=== PATIENT | male | born 1945 | race Caucasian/White ===

== ENCOUNTER 2018-01-25 13:07 | Inpatient (IN) ==
[2018-01-25] MEDS ORDERED: Furosemide 40 MG/4 ML VIAL IVP ONE ×2 (13:57→16:18)
[2018-01-25 14:12] LABS: Hematocrit 39.3 % (37.5-50.1); Mean Corpuscular HGB Conc 33.1 g/dL (31.6-35.5); Mean Corpuscular Hemoglobin 29.3 pg (28.0-33.3); Mean Corpuscular Volume 88.5 fL (83.0-100.0); Mean Platelet Volume 9.9 fL (9.4-12.4); Platelet Count 274 K/mcL (140-400); Red Blood Count 4.44 M/mcL (4.19-5.50); Red Cell Distribution Width 17.3 % (11.5-14.5)
[2018-01-25 14:24] LABS: INR 2.9; Prothrombin Time 32.8 Seconds (9.4-12.1)
--- NOTE | 2018-01-25 14:31 | Emergency Department Note ---
Disposition Clinical Impression: Congestive heart failure, Shortness of breath, Trigeminy, Atrial fibrillation Disposition: Admitted As Inpatient Referrals: Murray Sarah DO [Primary Care Provider] - Forms: ED Satisfaction Letter General Adult HPI - General Chief complaint: ED Shortness of Breath/Dyspnea Stated complaint: "SOB x 1 week" Time Seen by Provider: 01/25/18 13:27 - History of Present Illness Pain Scale: 0 - Related Data Previous Rx's Medication Instructions Recorded OxyCODONE/APAP 5/325 [Percocet 1 each PO Q8HR PRN 2 Days #5 tablet 10/01/17 5/325 MG] Allergies Allergy/AdvReac Type Severity Reaction Status Date / Time No Known Allergies Allergy Verified 10/01/17 08:46 Past Medical History - Past Medical History Medical history: Reports: arthritis, atrial fibrillation, cancer, coronary artery disease, CVA, diabetes, glaucoma, hyperlipidemia, hypertension, TIA Psychiatric history: Reports: no psych history - Social History Smoking Status: Current every day smoker Smokeless Tobacco Status: No Alcohol use: Reports: none Drug use: Reports: none Course Vital Signs Temperature 97.7 F 01/25/18 13:12 Pulse Rate 86 01/25/18 13:12 Respiratory Rate 14 01/25/18 13:12 Blood Pressure 148/102 01/25/18 13:12 O2 Sat by Pulse Oximetry 94 01/25/18 13:12 Temperature 97.7 F 01/25/18 13:41 Pulse Rate 86 01/25/18 13:41 Respiratory Rate 14 01/25/18 13:41 Blood Pressure 148/102 01/25/18 13:41 O2 Sat by Pulse Oximetry 94 01/25/18 13:41 Oxygen Delivery Oxygen Delivery Room Air Medical Decision Making - Lab Data Result diagrams: 01/25/18 13:52 Lab Results 01/25/18 01/25/18 Range/Units 13:52 14:07 WBC 9.3 (4.3-11.1) K/mcL RBC 4.44 (4.19-5.50) M/mcL Hgb 13.0 (12.9-16.9) g/dL Hct 39.3 (37.5-50.1) % MCV 88.5 (83.0-100.0) fL MCH 29.3 (28.0-33.3) pg MCHC 33.1 (31.6-35.5) g/dL RDW 17.3 H (11.5-14.5) % Plt Count 274 (140-400) K/mcL MPV 9.9 (9.4-12.4) fL PT 32.8 H (9.4-12.1) Seconds INR 2.9 Critical Care Time Critical Care Time: No Attestation Statement - Attestation Attestation: I examined this patient and my medical decision-making was reviewed with the Resident Physician. I agree with the documented findings, disposition and treatment plan as described except to the extent set forth below. 72-year-old male since emergency room for shortness of breath, weight gain, leg swelling. Patient has no history of congestive heart failure. Chest x-ray shows CHF. We will place him on IV Lasix of 40 mg. Patient will need to be admitted for further workup of CHF. He denies any history of congestive heart failure. Also do a right lower extremity Doppler is his right lower extremity was more swollen than the left. I anticipate this to be normal. His EKG showed some trigeminy at times. He does have underlying history of A. fib. He has A. fib date did back in September 2017. He is currently on Coumadin. Patient does have a history of seeing cardiology in the past. No critical care time.
[2018-01-25 14:37] LABS: Troponin I < 0.03 ng/mL (< 0.04)
--- NOTE | 2018-01-25 14:41 | Emergency Department Note ---
Disposition Clinical Impression: Shortness of breath, Trigeminy Congestive heart failure Qualifiers: Heart failure type: unspecified Heart failure chronicity: acute on chronic Qualified Code(s): I50.9 - Heart failure, unspecified Atrial fibrillation Qualifiers: Atrial fibrillation type: chronic Qualified Code(s): I48.2 - Chronic atrial fibrillation Disposition: Admitted As Inpatient Condition: Good Referrals: Murray Sarah DO [Primary Care Provider] - Forms: ED Satisfaction Letter Time of Disposition: 16:23 General Adult HPI - General Chief complaint: ED Shortness of Breath/Dyspnea Stated complaint: "SOB x 1 week" Time Seen by Provider: 01/25/18 13:27 Nursing Notes Reviewed: Yes Vital Signs Reviewed: Yes - History of Present Illness HPI Narrative: Patient presenting to emergency department complaining of shortness of breath for 1 week as well as increasing shortness of breath. Does have a history of congestive heart failure as well as open heart surgery in May. Reports that he has been placed on Lasix within the past month however this was just a short worse. This did make a shortness of breath go away at that time. Patient is mildly diaphoretic at this time. Has some shallow breathing. Lung sounds are diminished however clear. Patient states that he has been on BiPAP before and requests to not go on this unless it absolutely necessary. We did get a basic lab workup on patient and provided him with 40 units of Lasix. He was found to be in congestive heart failure by chest x-ray. He had increased pulmonary edema. He does have bilateral lower extremity pitting. Is worse on the right than the left. A Doppler was done on the right lower extremity which was negative. We will admit patient to the hospitalist for a CHF exacerbation at this time. He is agreeable with this. I did go reassess the patient at time of admission and he states that he was feeling a little better. Pain Scale: 0 - Related Data Home Medications Medication Instructions Recorded Confirmed Aspirin Enteric Coated [Aspirin EC] 81 mg PO DAILY 01/25/18 01/25/18 Cetirizine HCl [Zyrtec] 10 mg PO DAILY 01/25/18 01/25/18 Donepezil [Aricept] 10 mg PO HS 01/25/18 01/25/18 Fenofibrate 200 mg PO DAILY 01/25/18 01/25/18 Insulin DETEMIR [Levemir] 20 unit SQ BID 01/25/18 01/25/18 Levothyroxine Sodium 25 mcg PO DAILY 01/25/18 01/25/18 [Levothyroxine Sodium] Metformin HCl [Glucophage] 1,000 mg PO QAM 01/25/18 01/25/18 Metoprolol Tartrate 100 mg PO DAILY 01/25/18 01/25/18 Multivitamin [One Daily Essential] 1 tab PO DAILY 01/25/18 01/25/18 Simvastatin [Zocor] 40 mg PO HS 01/25/18 01/25/18 Travoprost [Travatan Z] 1 drop BOTH EYES DAILY 01/25/18 01/25/18 Warfarin [Coumadin] 2.5 mg PO TUTHSA 01/25/18 01/25/18 Warfarin [Coumadin] 4 mg PO SUMOWEFR 01/25/18 01/25/18 metFORMIN [Glucophage] 500 mg PO QPM 01/25/18 01/25/18 Allergies Allergy/AdvReac Type Severity Reaction Status Date / Time No Known Allergies Allergy Verified 10/01/17 08:46 All systems ED: reviewed and negative except as stated. Review of Systems: As Per HPI Constitutional: Denies: fever, chills ENT ED: Reports: congestion (clear rhinorhea) Cardiovascular: Denies: chest pain, syncope Respiratory: Reports: dyspnea. Denies: cough, sputum production Gastrointestinal: Denies: abdominal pain, nausea, vomiting, diarrhea, hematemesis, melena, hematochezia Musculoskeletal: Reports: other (Swelling to lower cavities. Noted a right lower extremity swelling that is increased from the left side.). Denies: back pain, neck pain Integumentary: Denies: rash Neurological: Reports: weakness (Getting worse over the past week) Past Medical History - Past Medical History Attestation: Yes The following information was validated with the patient. Source: patient Medical history: Reports: arthritis, atrial fibrillation, cancer, coronary artery disease, CVA, diabetes, glaucoma, hyperlipidemia, hypertension, TIA Psychiatric history: Reports: no psych history - Social History Smoking Status: Current every day smoker Smokeless Tobacco Status: No Alcohol use: Reports: none Drug use: Reports: none Physical Exam - General Limitations: no limitations General appearance: alert, in no apparent distress - Head Head exam: atraumatic, normocephalic, normal inspection - Eye Eye exam: Present: normal appearance, PERRL, EOMI - ENT ENT exam: normal exam, normal oropharynx, mucous membranes moist - Neck Neck exam: Present: normal inspection, full ROM, trachea midline - Chest Chest inspection: Present: normal inspection, symmetric chest wall rise - Respiratory Respiratory exam: Present: respiratory distress (Mildly tachypneic.), other ( Decreased lung sounds throughout.). Absent: accessory muscle use - Cardiovascular Cardiovascular exam: Present: regular rate, normal rhythm, normal heart sounds - Abdominal Exam Abdominal exam: Present: soft, Non-Tender. Absent: tenderness, distention, guarding, rebound, rigidity, organomegaly - Extremities Exam Extremities exam: Present: normal capillary refill, pedal edema, other (Lower extremity swelling. Right worse than left.). Absent: calf tenderness - Back Exam Back exam: Present: normal inspection, full ROM. Absent: tenderness - Neurological Exam Neurological exam: Present: alert, oriented X3 - Psychiatric Psychiatric exam: Present: normal affect, normal mood - Skin Skin exam: Present: warm, dry, intact, normal color, diaphoresis (Mildly diaphoretic). Absent: rash, cyanosis Course Course Narrative: Patient is mildly dyspneic on initial exam. He is tachypneic with short shallow breathing. He states that he does have a history of CHF. Was on Lasix previously however does not take this all the time. Is not currently on it. Does report an increased weight gain recently. Does have a history of aortic valve replacement as well. He is in a atrial fibrillation on EKG with trigeminy. He was previously had several PVCs on his old EKG. We will admit patient to the hospital at this time for CHF exacerbation. Vital Signs Temperature 97.7 F 01/25/18 13:12 Pulse Rate 86 01/25/18 13:12 Respiratory Rate 14 01/25/18 13:12 Blood Pressure 148/102 01/25/18 13:12 O2 Sat by Pulse Oximetry 94 01/25/18 13:12 Temperature 97.7 F 01/25/18 13:41 Pulse Rate 85 01/25/18 15:32 Respiratory Rate 30 01/25/18 15:32 Blood Pressure 133/116 01/25/18 15:32 O2 Sat by Pulse Oximetry 96 01/25/18 15:32 Oxygen Delivery Oxygen Delivery Nasal Cannula Medical Decision Making - Medical Records Medical records reviewed: Yes I reviewed the patient's medical records. - Lab Data Lab results reviewed: Yes I reviewed the patient's lab results. Result diagrams: 01/25/18 13:52 01/25/18 13:52 Lab Results 01/25/18 01/25/18 01/25/18 Range/Units 13:52 13:52 14:05 WBC 9.3 (4.3-11.1) K/mcL RBC 4.44 (4.19-5.50) M/mcL Hgb 13.0 (12.9-16.9) g/dL Hct 39.3 (37.5-50.1) % MCV 88.5 (83.0-100.0) fL MCH 29.3 (28.0-33.3) pg MCHC 33.1 (31.6-35.5) g/dL RDW 17.3 H (11.5-14.5) % Plt Count 274 (140-400) K/mcL MPV 9.9 (9.4-12.4) fL PT (9.4-12.1) Seconds INR Sodium 137 (136-145) mEq/L Potassium 4.0 (3.5-5.1) mEq/L Chloride 108 H (98-107) mEq/L Carbon Dioxide 20 L (23-29) mEq/L BUN 14 (8-23) mg/dL Creatinine 1.01 (0.70-1.30) mg/dL Est GFR ( Amer) > 60 (> 60) Est GFR (Non-Af Amer) > 60 (> 60) BUN/Creatinine Ratio 14 (6-26) Glucose 195 H (70-105) mg/dL Calculated Osmolality 290 (280-300) Lactic Acid 1.5 (0.5-2.2) mmol/L Calcium 9.3 (8.6-10.3) mg/dL Troponin I < 0.03 (< 0.04) ng/mL B-Natriuretic Peptide (Less than 100) pg/mL 01/25/18 01/25/18 Range/Units 14:05 14:07 WBC (4.3-11.1) K/mcL RBC (4.19-5.50) M/mcL Hgb (12.9-16.9) g/dL Hct (37.5-50.1) % MCV (83.0-100.0) fL MCH (28.0-33.3) pg MCHC (31.6-35.5) g/dL RDW (11.5-14.5) % Plt Count (140-400) K/mcL MPV (9.4-12.4) fL PT 32.8 H (9.4-12.1) Seconds INR 2.9 Sodium (136-145) mEq/L Potassium (3.5-5.1) mEq/L Chloride (98-107) mEq/L Carbon Dioxide (23-29) mEq/L BUN (8-23) mg/dL Creatinine (0.70-1.30) mg/dL Est GFR ( Amer) (> 60) Est GFR (Non-Af Amer) (> 60) BUN/Creatinine Ratio (6-26) Glucose (70-105) mg/dL Calculated Osmolality (280-300) Lactic Acid (0.5-2.2) mmol/L Calcium (8.6-10.3) mg/dL Troponin I (< 0.04) ng/mL B-Natriuretic Peptide 345 H (Less than 100) pg/mL - Radiology Data Radiology results reviewed: Yes I reviewed the patient's radiology results. Chest X-Ray 01/25/18 13:15 IMPRESSION: Mild CHF. D/ / Maurizio Crowell MD / Maurizio Crowell MD Interpreting Provider: Maurizio Crowell MD - EKG Data EKG #1 EKG attestation: Yes I reviewed and interpreted this EKG. EKG results narrative: Atrial fibrillation with trigeminy at this time. Was in this previously on old EKG in September. No Signs of acute ischemia.
[2018-01-25 14:44] LABS: BUN/Creatinine Ratio 14 (6-26); Blood Urea Nitrogen 14 mg/dL (8-23); Calcium 9.3 mg/dL (8.6-10.3); Carbon Dioxide 20 mEq/L (23-29); Chloride 108 mEq/L (98-107); Glucose 195 mg/dL (70-105); Osmolality,Calculated 290 (280-300); Sodium 137 mEq/L (136-145); eGFR For Non-African Americans > 60 (> 60)
[2018-01-25] MEDS ORDERED: *HR* Morphine 2 MG/ML SYRINGE IVP ONE (16:18)
[2018-01-25] MEDS ORDERED: Naloxone 0.4 MG/ML INJ IVP PRN (16:19)
--- NOTE | 2018-01-25 16:34 | Internal Med History&Physical ---
Date of Encounter: 01/25/18 Time of Encounter: 16:31 Internal Medicine - H&P: HPI Chief complaint: Shortness of breath and neck swelling. Admitted From: Home Plans for Post Hospital Care: Home History of present illness: Mr. Davis is a 72 year old male , seen in company of his son He has a PMH of CAD, s/p aortic valve replacement 05/2017 in [place], hx of bladder stimulation placement due to prostatic CA, Afib on warfarin, HTN, Tobacco abuse, history of glaucoma and cataract s/p eye surgery 01/24/18 He presented to the ER with complains of progressive worsening shortness of breath for the past one week. According to the patient and his family member on the bedside, he was able to climb a flight of stairs and basically independent at home. however, for the past one week, he has been having worsening leg edema, weight gain and progressive shortness of breath, initially on exertion, now at rest. He was in resp distress this a.m, prompting them to call EMS. He denies cough, fever or chills. 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 He denies calf tenderness and there is no history of trauma. He denies chest pain, nausea, vomiting, dizziness or diaphoresis. He denies abdominal pain or discomfort, no change in urinary or bowel habits. He denies confusion or headaches He denies illicit drug use and smokes tobacco He has no known medication allergies On evaluation in the ER, he was in significant resp distress and hypoxic but responded promptly to O2 supplementation, work up revealed pulm vascular congestion, BNP 354, Initial trops negative, EKG with Afib with trigeminy, CBC is WNL and Chem is WNL. INR is therapeutic During my evaluation, patient is in moderate resp distress, unable to complete his sentences and tachtpneic to 30s. He was offered BiPAP by ER team but had declined, he also received lasix from the ER He will be admitted for acute CHFE with resp distress requiring non-invasive mechanical ventilation. He is full code Past Med Surg Social Fam HX - Past Medical History Medical history: arthritis, atrial fibrillation, cancer, coronary artery disease , CVA, diabetes, glaucoma, hyperlipidemia, hypertension, TIA Additional medical history: prostrate, dec fall possible stroke Psychiatric history: no psych history - Past Surgical History Additional surgical history: prostrate, finger, cabg - Social History Smoking Status: Current every day smoker Smokeless Tobacco Status: No Alcohol use: none Drug use: none Internal Medicine - H&P: Meds Aspirin Enteric Coated [Aspirin EC] 81 mg PO DAILY 01/25/18 [History] Cetirizine HCl [Zyrtec] 10 mg PO DAILY 01/25/18 [History] Donepezil [Aricept] 10 mg PO HS 01/25/18 [History] Fenofibrate 200 mg PO DAILY 01/25/18 [History] Insulin DETEMIR [Levemir] 20 unit SQ BID 01/25/18 [History] Levothyroxine Sodium [Levothyroxine Sodium] 25 mcg PO DAILY 01/25/18 [History] Metformin HCl [Glucophage] 1,000 mg PO QAM 01/25/18 [History] Metoprolol Tartrate 100 mg PO DAILY 01/25/18 [History] Multivitamin [One Daily Essential] 1 tab PO DAILY 01/25/18 [History] Simvastatin [Zocor] 40 mg PO HS 01/25/18 [History] Travoprost [Travatan Z] 1 drop BOTH EYES DAILY 01/25/18 [History] Warfarin [Coumadin] 2.5 mg PO TUTHSA 01/25/18 [History] Warfarin [Coumadin] 4 mg PO SUMOWEFR 01/25/18 [History] metFORMIN [Glucophage] 500 mg PO QPM 01/25/18 [History] 3 Allergy/AdvReac Type Severity Reaction Status Date / Time No Known Allergies Allergy Verified 10/01/17 08:46 All Systems PM: A 10-system review of systems was performed and is negative for pertinent findings except as documented above in the HPI. - Constitutional Constitutional: as per HPI - EENT Eyes: as per HPI Ears: as per HPI Nose, mouth and throat: as per HPI - Cardiovascular Cardiovascular ROS IM: as per HPI - Respiratory Respiratory: as per HPI - Gastrointestinal Gastrointestinal: as per HPI - Musculoskeletal Musculoskeletal ROS IM: as per HPI - Integumentary Integumentary IM: as per HPI - Neurological Neurological ROS: as per HPI - Hematologic/Lymphatic Hematologic/Lymphatic: as per HPI - Constitutional Vitals: Temp Pulse Resp BP Pulse Ox 97.7 F 85 30 133/116 96 01/25/18 13:41 01/25/18 15:32 01/25/18 15:32 01/25/18 15:32 01/25/18 15:32 General appearance: Present: cooperative, A&O X 3, pleasant, severe distress ( severe resp distress, tachypneic) Exam: see detailed exam per system - Head Head exam: Present: atraumatic, normocephalic - Eye Eye exam: Present: PERRL, conjuntiva pink, sclera anicteric Pupils: Present: PERRL Additional comments: R rina-orbital ecchymoses, patient had cataract surgery 01/24/18 - ENT ENT exam: Present: mucous membranes moist - Neck Neck exam general surgery: Present: normal inspection - Respiratory Additional comments: bilateral diminished air entry RLL and LLL crackles No wheezing - Cardiovascular Cardiovascular exam: Present: irregular rhythm, +S1, +S2, systolic murmur - GI/Abdominal GI/Abdominal exam: Present: normal bowel sounds, soft, no peritoneal signs. Absent: guarding, tenderness - Extremities Exam Extremities exam: Present: pedal edema (bilateral pitting pedal edema, L>R) - Neurological Exam Neurological exam: Present: alert, CN II-XII intact, oriented X3, no focal deficits. Absent: pronater drift, facial droop, speech deficit - Skin Skin exam: Present: dry, intact Internal Med - H&P Results - Labs CBC & Chem 7: 01/25/18 13:52 01/25/18 13:52 Labs: Short CBC 01/25/18 Range/Units 13:52 WBC 9.3 (4.3-11.1) K/mcL Hgb 13.0 (12.9-16.9) g/dL Hct 39.3 (37.5-50.1) % Plt Count 274 (140-400) K/mcL BMP 01/25/18 13:52 Sodium 137 Potassium 4.0 Chloride 108 H Carbon Dioxide 20 L BUN 14 Creatinine 1.01 Glucose 195 H Calcium 9.3 Cardiac Enzymes 01/25/18 Range/Units 13:52 Troponin I < 0.03 (< 0.04) ng/mL - Impressions ITS Impressions Chest X-Ray 01/25/18 13:15 IMPRESSION: Mild CHF. D/ / Maurizio Crowell MD / Maurizio Crowell MD Interpreting Provider: Maurizio Crowell MD - Assessment and plan (1) Congestive heart failure Current Visit: Yes Status: Acute Assessment and plan: Patient presented with shortness of breath on exertion, leg edema in the setting of Afib , recent aortic valve replacement BNP on admission 354 CXR with mild pulm edema Patient in resp distress on evaluation Received 40mg lasix in ER Will give an additional 40mg IV STAT Morphine 2mg IV Place on BIPAP tp decrease work of breathing Initial EKG with Afib with trigeminy Initial troponin negative-will trend Strict I/os Daily weight Fluid restriction diet 1500cc dialy ECHO from 08/2017 with preserved EF and well placed bioprosthetic aortic valve, diastolic function was indeterminate. Will repeat limited ECHO to assess EF, aortic valve and wall motion Consider cardiology eval if patient is not improving Patient is high risk due to diagnosis, significant resp distress and risk for mechanical intubation Qualifiers: Heart failure type: unspecified Heart failure chronicity: acute on chronic Qualified Code(s): I50.9 - Heart failure, unspecified (2) Coronary artery disease Current Visit: Yes Status: Chronic Assessment and plan: Continue home meds Qualifiers: Coronary Disease-Associated Artery/Lesion type: [place] artery [place] vs. transplanted heart: [place] heart Associated angina: without angina Qualified Code(s): I25.10 - Atherosclerotic heart disease of [place] coronary artery without angina pectoris (3) S/P aortic valve replacement Current Visit: Yes Status: Chronic Assessment and plan: Follow ECHO report (4) HTN (hypertension) Current Visit: Yes Status: Chronic Assessment and plan: Blood pressure uncontrolled at time of presentation Resume home meds and titrate prn Qualifiers: Hypertension type: essential hypertension Qualified Code(s): I10 - Essential (primary) hypertension (5) Tobacco abuse Current Visit: Yes Status: Chronic Assessment and plan: Encouraged cessation (6) Atrial fibrillation Current Visit: Yes Status: Chronic Assessment and plan: HR mostly controlled Patient stated he took his medications this mrn INR is therapeutic Continue BB and Warfarin-pharmacy to dose Qualifiers: Atrial fibrillation type: chronic Qualified Code(s): I48.2 - Chronic atrial fibrillation (7) Hypothyroidism Current Visit: Yes Status: Chronic Assessment and plan: Check TSH with a.m labs Continue home dose of synthroid Qualifiers: Hypothyroidism type: unspecified Qualified Code(s): E03.9 - Hypothyroidism , unspecified - Time Spent With Patient Total time spent is greater than 50% in coordination of care (as documented) at patient's floor/unit and/or counseling patient:
[2018-01-25] MEDS ORDERED: D5% in Water 1,000 ML IVC PRN (16:58)
[2018-01-25] MEDS ORDERED: Dextrose Gel 15 GM/37.5 ML TUBE PO PRN ×2 (16:58)
[2018-01-25] MEDS ORDERED: *HR* Dextrose 50 % in Water (Syg) 50 ML SYRINGE IVP PRN (16:58)
[2018-01-25] MEDS ORDERED: Warfarin perPT PO PRN (18:00)
[2018-01-25] MEDS: Insulin LISPRO 300 UNITS/3 ML VIAL SQ SCH (21:14)
[2018-01-25] MEDS: Insulin DETEMIR 100 UNIT/ML X5UNITS SQ SCH (21:14)
[2018-01-26] MEDS: Levothyroxine 25 MCG TABLET PO SCH (05:33)
[2018-01-26 05:53] LABS: Hematocrit 38.7 % (37.5-50.1); Hemoglobin 12.5 g/dL (12.9-16.9); Mean Corpuscular HGB Conc 32.3 g/dL (31.6-35.5); Mean Corpuscular Hemoglobin 28.5 pg (28.0-33.3); Mean Corpuscular Volume 88.4 fL (83.0-100.0); Platelet Count 287 K/mcL (140-400); Red Blood Count 4.38 M/mcL (4.19-5.50); Red Cell Distribution Width 17.2 % (11.5-14.5)
[2018-01-26 05:56] LABS: INR 2.9; Prothrombin Time 32.4 Seconds (9.4-12.1)
[2018-01-26 05:59] LABS: Activated Partial Thrombo Time 35.3 Seconds (26.0-36.0)
[2018-01-26 06:12] LABS: BUN/Creatinine Ratio 11 (6-26); Blood Urea Nitrogen 13 mg/dL (8-23); Calcium 9.2 mg/dL (8.6-10.3); Carbon Dioxide 25 mEq/L (23-29); Chloride 105 mEq/L (98-107); Glucose 104 mg/dL (70-105); Osmolality,Calculated 288 (280-300); Potassium 3.4 mEq/L (3.5-5.1); Sodium 139 mEq/L (136-145); eGFR For Non-African Americans 58 (> 60)
[2018-01-26] MEDS: Insulin LISPRO 300 UNITS/3 ML VIAL SQ SCH ×4 (07:40→20:20)
[2018-01-26] MEDS: Loratadine 10 MG TABLET PO SCH (08:04)
[2018-01-26] MEDS: Fenofibrate 54 MG TABLET PO SCH (08:04)
[2018-01-26] MEDS: Multivit/Ca/Min/Fe/FA 1 TAB TABLET PO SCH (08:04)
[2018-01-26] MEDS: Aspirin Enteric Coated 81 MG Tablet PO SCH (08:04)
[2018-01-26] MEDS: Insulin DETEMIR 100 UNIT/ML X5UNITS SQ SCH ×2 (08:12→20:21)
[2018-01-26] MEDS ORDERED: Metoprolol 100 MG TABLET PO SCH (09:00)
[2018-01-26 09:06] LABS: Estimated Average Glucose 197 mg/dl; Hemoglobin A1C 8.5 %
--- NOTE | 2018-01-26 15:10 | Internal Med Progress Note ---
Hospitalist Progress Note - Encounter Date of Encounter: 01/26/18 Time of Encounter: 15:07 - Subjective Interval History: Presented with complaints of progressive worsening dyspnea 1 week. In the ED found to have congestive heart failure. Imaging revealed mild CHF, patient given lysis and restrictive status improved. Continues have some shortness of breath at rest, worse with activity. Continues to have 1+ pitting bilateral lower extremity edema. - Exam Vitals: Temp Pulse Resp BP Pulse Ox 97.6 F 86 16 131/86 94 01/26/18 11:03 01/26/18 11:03 01/26/18 11:03 01/26/18 11:03 01/26/18 11:03 Exam: PHYSICAL EXAMINATION: GENERAL: The patient is an ill-appearing elderly male in mild distress distress , he is alert and oriented 3 HEENT: Head is normocephalic and atraumatic. Extraocular muscles are intact. Pupils are equal, round, and reactive to light and accommodation. Nares appeared normal. Mouth is well hydrated and without lesions. Mucous membranes are moist. Posterior pharynx clear of any exudate or lesions. NECK: Supple. No carotid bruits. No lymphadenopathy or thyromegaly. LUNGS: BL L Rales, diminished with limitations in her movement per auscultation HEART: Irregular rhythm, S1, S2 ABDOMEN: Soft, nontender, and nondistended. Positive bowel sounds. No hepatosplenomegaly was noted. EXTREMITIES: Without any cyanosis, clubbing, rash, lesions or edema. NEUROLOGIC: Cranial nerves II through XII are grossly intact. SKIN: No ulceration or induration present. - Assessment and Plan (1) Congestive heart failure Current Visit: Yes Status: Acute Assessment and Plan: Patient presented with shortness of breath on exertion, leg edema in the setting of Afib , recent aortic valve replacement BNP on admission 354 CXR with mild pulm edema Presenting rest or distress, continues have mild shortness of breath while laying in bed on 2 L nasal cannula, worse with activity. Received 40mg lasix in the ED and on arrival to the floor total fluid status not negative -940 Morphine 2mg IV Initial EKG with Afib with trigeminy Serial troponins negative 2 less than 0.03 Strict I/os Daily weight Fluid restriction diet 1500cc dialy ECHO from 08/2017 with preserved EF and well placed bioprosthetic aortic valve, diastolic function was indeterminate. Will repeat limited ECHO to assess EF, aortic valve and wall motion-pending Consider cardiology eval if patient is not improving Patient is high risk due to diagnosis, significant resp distress and risk for mechanical intubation (2) Atrial fibrillation Current Visit: Yes Status: Chronic Assessment and Plan: HR mostly controlled--12 hour review avg hr in the 80s hemodynamically stable INR is therapeutic Continue BB and Warfarin-pharmacy to dose (3) Coronary artery disease Current Visit: Yes Status: Chronic Assessment and Plan: per hx chest pain free continue tele Continue home meds (4) S/P aortic valve replacement Current Visit: Yes Status: Chronic Assessment and Plan: tte pending (5) HTN (hypertension) Current Visit: Yes Status: Chronic Assessment and Plan: per hx remains hemodynamically stable continue anti-htn meds (6) Tobacco abuse Current Visit: Yes Status: Chronic Assessment and Plan: discuss cessation (7) Hypothyroidism Current Visit: Yes Status: Chronic Assessment and Plan: continue synthroid DVT Prophylaxis: warfarin, PT dosing, therapeutic - Time Spent with Patient Total time spent is greater than 50% in coordination of care (as documented) at patient's floor/unit and/or counseling patient: less than 15 minutes Plan of Care Discussed with: patient Internal Medicine: Result - Labs CBC & Chem 7: 01/26/18 04:54 01/26/18 04:54 Labs: Short CBC 01/26/18 Range/Units 04:54 WBC 8.3 (4.3-11.1) K/mcL Hgb 12.5 L (12.9-16.9) g/dL Hct 38.7 (37.5-50.1) % Plt Count 287 (140-400) K/mcL BMP 01/26/18 04:54 Sodium 139 Potassium 3.4 L Chloride 105 Carbon Dioxide 25 BUN 13 Creatinine 1.22 Glucose 104 Calcium 9.2 Cardiac Enzymes 01/25/18 Range/Units 20:51 Troponin I < 0.03 (< 0.04) ng/mL - ABG Interpretation ABG results: PT/INR, D-dimer PT 32.4 Seconds (9.4-12.1) H 01/26/18 04:54 Consult Discharge Plan - Plan Referrals: Murray Sarah DO [Primary Care Provider] - 02/06/18 10:10 am (1) Congestive heart failure Qualifiers: Heart failure type: unspecified Heart failure chronicity: acute on chronic Qualified Code(s): I50.9 - Heart failure, unspecified (2) Atrial fibrillation Qualifiers: Atrial fibrillation type: chronic Qualified Code(s): I48.2 - Chronic atrial fibrillation (3) Coronary artery disease Qualifiers: Coronary Disease-Associated Artery/Lesion type: [place] artery [place] vs. transplanted heart: [place] heart Associated angina: without angina Qualified Code(s): I25.10 - Atherosclerotic heart disease of [place] coronary artery without angina pectoris (5) HTN (hypertension) Qualifiers: Hypertension type: essential hypertension Qualified Code(s): I10 - Essential (primary) hypertension (7) Hypothyroidism Qualifiers: Hypothyroidism type: unspecified Qualified Code(s): E03.9 - Hypothyroidism, unspecified
[2018-01-26] MEDS ORDERED: *HR* Warfarin 2.5 MG TABLET PO ONE (18:00)
[2018-01-26] MEDS: Latanoprost 2.5 ML BOTTLE BOTH EYES SCH (22:00)
[2018-01-26] MEDS: OFLOXACIN OPTH OP SCH (23:12)
[2018-01-26] MEDS: PREDNISOLONE ACET 1% OP SCH (23:12)
[2018-01-27] MEDS ORDERED: Albuterol 2.5 MG/3 ML NEBULIZER IH PRN (04:06)
[2018-01-27 04:33] LABS: INR 2.3; Prothrombin Time 26.1 Seconds (9.4-12.1)
[2018-01-27] MEDS: Levothyroxine 25 MCG TABLET PO SCH (05:45)
[2018-01-27] MEDS: Insulin LISPRO 300 UNITS/3 ML VIAL SQ SCH ×4 (08:51→20:27)
[2018-01-27] MEDS: Multivit/Ca/Min/Fe/FA 1 TAB TABLET PO SCH (08:55)
[2018-01-27] MEDS: PREDNISOLONE ACET 1% OP SCH ×4 (08:55→20:30)
[2018-01-27] MEDS: Insulin DETEMIR 100 UNIT/ML X5UNITS SQ SCH ×2 (08:55→20:27)
[2018-01-27] MEDS: Fenofibrate 54 MG TABLET PO SCH (08:55)
[2018-01-27] MEDS: OFLOXACIN OPTH OP SCH ×4 (08:55→20:30)
[2018-01-27] MEDS: Metoprolol XL (24 HR) Succ 50 MG TAB.ER.24H PO SCH (08:55)
[2018-01-27] MEDS: Loratadine 10 MG TABLET PO SCH (08:55)
[2018-01-27] MEDS: Aspirin Enteric Coated 81 MG Tablet PO SCH (08:55)
[2018-01-27 10:22] LABS: BUN/Creatinine Ratio 13 (6-26); Basophils # 0.1 K/mcL (0.0-0.2); Basophils % 1.1 %; Blood Urea Nitrogen 15 mg/dL (8-23); Calcium 9.2 mg/dL (8.6-10.3); Carbon Dioxide 25 mEq/L (23-29); Chloride 105 mEq/L (98-107); Eosinophils # 0.5 K/mcL (0.0-0.6); Eosinophils % 7.4 %; Glucose 245 mg/dL (70-105); Hematocrit 39.9 % (37.5-50.1); Hemoglobin 12.7 g/dL (12.9-16.9); Immature Granulocytes % 0.4 % (0-4); Lymphocytes % 28.7 %; Mean Corpuscular HGB Conc 31.8 g/dL (31.6-35.5); Mean Corpuscular Hemoglobin 28.5 pg (28.0-33.3); Mean Corpuscular Volume 89.7 fL (83.0-100.0); Mean Platelet Volume 9.8 fL (9.4-12.4); Monocytes # 0.5 K/mcL (0.0-1.3); Monocytes % 7.6 %; Neutrophils # 3.8 K/mcL (1.6-8.9); Osmolality,Calculated 295 (280-300); Platelet Count 283 K/mcL (140-400); Red Blood Count 4.45 M/mcL (4.19-5.50); Red Cell Distribution Width 17.1 % (11.5-14.5); Segmented Neutrophils % 54.8 %; Sodium 138 mEq/L (136-145); eGFR For Non-African Americans > 60 (> 60)
[2018-01-27] MEDS ORDERED: Furosemide 40 MG/4 ML VIAL IVP ONE (12:00)
--- NOTE | 2018-01-27 12:17 | Internal Med Progress Note ---
Hospitalist Progress Note - Encounter Date of Encounter: 01/27/18 Time of Encounter: 12:02 - Subjective Interval History: Presented with dyspnea 1 week, imaging revealed mild congestive heart failure. Was treated with Lasix and has continued to respond appropriately, however, continued to report mild shortness of breath. Continues to have bilateral lower extremity 1+ pitting edema - Exam Vitals: Temp Pulse Resp BP Pulse Ox 97.5 F L 95 18 136/93 98 01/27/18 07:59 01/27/18 07:59 01/27/18 07:59 01/27/18 07:59 01/27/18 07:59 Exam: PHYSICAL EXAMINATION: GENERAL: The patient is an ill-appearing elderly male in mild distress distress , he is alert and oriented 3 HEENT: Head is normocephalic and atraumatic. Extraocular muscles are intact. Pupils are equal, round, and reactive to light and accommodation. Nares appeared normal. Mouth is well hydrated and without lesions. Mucous membranes are moist. Posterior pharynx clear of any exudate or lesions. NECK: Supple. No carotid bruits. No lymphadenopathy or thyromegaly. LUNGS: BL L Rales, diminished lower lobes, appears to be moving more air today HEART: Irregular rhythm, S1, S2 ABDOMEN: Soft, nontender, and nondistended. Positive bowel sounds. No hepatosplenomegaly was noted. EXTREMITIES: Without any cyanosis, clubbing, rash, lesions. 1+ pitting edema bilateral lower extremities NEUROLOGIC: Cranial nerves II through XII are grossly intact. SKIN: No ulceration or induration present. - Assessment and Plan (1) Congestive heart failure Current Visit: Yes Status: Acute Assessment and Plan: Patient presented with shortness of breath on exertion, B/L leg edema in the setting of Afib and congestive heart failure, recent aortic valve replacement BNP on admission 354 CXR with mild pulm edema continues have mild shortness of breath , continuing to require 2 L nasal cannula for respiratory support total fluid status nEt negative -990, has received 80 total IV Lasix in days prior. Did not receive any Lasix yesterday. We will give an additional 40 mg IV Lasix push today, continue to monitor renal function. Initial EKG with Afib with trigeminy Serial troponins negative 2 less than 0.03 Strict I/os Daily weight-stable 01/27/18 Fluid restriction diet 1500cc dialy ECHO from 08/2017 with preserved EF and well placed bioprosthetic aortic valve, diastolic function was indeterminate. Will repeat limited ECHO to assess EF, aortic valve and wall motion-pending Consider cardiology eval if patient is not improving Patient is high risk due to diagnosis, significant resp distress and risk for mechanical intubation 01/27--although patient is continuing to require 2 L nasal cannula for respiratory support he appears to be improving clinically. He does not appear to be short of breath today and is sitting up in chair and able to remove his oxygen times. I will have him ambulate in the [place] 3 times a day, continue with incentive spirometer. Continue with 40 mg IV dose Lasix 1, wean O2 as appropriate. (2) Atrial fibrillation Current Visit: Yes Status: Chronic Assessment and Plan: HR mostly controlled--12 hour review avg hr in the 85 hemodynamically stable INR is therapeutic Continue BB and Warfarin-pharmacy to dose (3) Coronary artery disease Current Visit: Yes Status: Chronic Assessment and Plan: per hx Continues to be chest pain free continue tele Continue home cardiac meds (4) S/P aortic valve replacement Current Visit: Yes Status: Chronic Assessment and Plan: tte pending (5) HTN (hypertension) Current Visit: Yes Status: Chronic Assessment and Plan: Chronic remains hemodynamically stable continue anti-htn meds (6) Tobacco abuse Current Visit: Yes Status: Chronic Assessment and Plan: discuss cessation (7) Hypothyroidism Current Visit: Yes Status: Chronic Assessment and Plan: continue synthroid, asymptomatic DVT Prophylaxis: warfarin, PT dosing, therapeutic - Time Spent with Patient Total time spent is greater than 50% in coordination of care (as documented) at patient's floor/unit and/or counseling patient: less than 15 minutes Plan of Care Discussed with: patient Internal Medicine: Result - Labs CBC & Chem 7: 01/27/18 09:50 01/27/18 09:50 Labs: Short CBC 01/27/18 Range/Units 09:50 WBC 7.0 (4.3-11.1) K/mcL Hgb 12.7 L (12.9-16.9) g/dL Hct 39.9 (37.5-50.1) % Plt Count 283 (140-400) K/mcL Neutrophils # 3.8 (1.6-8.9) K/mcL BMP 01/27/18 09:50 Sodium 138 Potassium 4.0 Chloride 105 Carbon Dioxide 25 BUN 15 Creatinine 1.16 Glucose 245 H Calcium 9.2 - ABG Interpretation ABG results: PT/INR, D-dimer PT 26.1 Seconds (9.4-12.1) H 01/27/18 03:43 - Impressions Impressions Echocardiogram Limited Views 01/26/18 16:28 Impressions: Limited study LVEF 30-35%. Severe global left ventricular systolic dysfunction. Mild concentric left ventricular hypertrophy. Mildly dilated right ventricle. Moderate right ventricular hypokinesis. Mildly dilated left atrium and mildly dilated right atrium. RA pressure 15 mmHg Left Ventricular Wall Motion: Rest Echo Findings The apex, apical inferior, mid inferior, basal inferior, apical anterior, mid anterior, basal anterior, apical septal, mid inferior septal, basal inferior septal, apical lateral, mid anterior lateral, basal anterior lateral, mid anterior septal, mid inferior lateral, basal anterior septal and basal inferior lateral [place] were hypokinetic. Findings: Comments * Limited study, no doppler Study Quality * Technically sub-optimal due to lack of LV contrast. ECG Findings * Atrial fibrillation. * LBBB Left Ventricle * LVEF 30-35%. * Mild concentric left ventricular hypertrophy. * Severe global left ventricular systolic dysfunction. * LBBB wall motion abnormality Right Ventricle * Mildly dilated right ventricle. * Moderate right ventricular hypokinesis. Left Atrium * Mildly dilated left atrium. Right Atrium * Mildly dilated right atrium. Interatrial Septum * Interatrial septum not well evaluated. Aortic Valve * Bioprosthetic aortic valve well seated. Mitral Valve * Moderately calcified mitral valve leaflets. * Moderate mitral annular calcification Tricuspid Valve * Tricuspid valve not well visualized. Pulmonic Valve * Pulmonic valve not well visualized. Pericardium * The pericardium appears normal. IVC * The IVC is dilated. * RA pressure 15 mmHg * < 50% respiratory change. Consult Discharge Plan - Plan Referrals: Murray Sarah DO [Primary Care Provider] - 02/06/18 10:10 am (1) Congestive heart failure Qualifiers: Heart failure type: unspecified Heart failure chronicity: acute on chronic Qualified Code(s): I50.9 - Heart failure, unspecified (2) Atrial fibrillation Qualifiers: Atrial fibrillation type: chronic Qualified Code(s): I48.2 - Chronic atrial fibrillation (3) Coronary artery disease Qualifiers: Coronary Disease-Associated Artery/Lesion type: [place] artery [place] vs. transplanted heart: [place] heart Associated angina: without angina Qualified Code(s): I25.10 - Atherosclerotic heart disease of [place] coronary artery without angina pectoris (5) HTN (hypertension) Qualifiers: Hypertension type: essential hypertension Qualified Code(s): I10 - Essential (primary) hypertension (7) Hypothyroidism Qualifiers: Hypothyroidism type: unspecified Qualified Code(s): E03.9 - Hypothyroidism, unspecified
--- NOTE | 2018-01-27 15:36 | Electrocardiograph Report ---
[address] [address] Test Date: 2018-01-25 Pat Name: Riya Davis Department: 104 Room: 3B46 Gender: M Archeology Faculty Member: DIANELYS : 1945 Requested By: Jimy Henson Order Number: [id number] Reading MD: Zach Kraus Measurements Intervals [place] Rate: 81 P: MO: 0 QRS: 203 QRSD: 166 T: 60 QT: 445 QTc: 482 Interpretive Statements ATRIAL FIBRILLATION WITH ABERRANT CONDUCTION OR VENTRICULAR PREMATURE COMPLEXES INTRAVENTRICULAR CONDUCTION DELAY LOW VOLTAGE IN LIMB LEADS Electronically Signed On 01-27-2018 15:34:28 EDT by Zach Kraus
[2018-01-27] MEDS ORDERED: *HR* Warfarin 4 MG TABLET PO ONE (18:00)
[2018-01-27] MEDS: Latanoprost 2.5 ML BOTTLE BOTH EYES SCH (20:28)
[2018-01-28] MEDS: Levothyroxine 25 MCG TABLET PO SCH (05:36)
[2018-01-28 06:59] LABS: Basophils # 0.1 K/mcL (0.0-0.2); Basophils % 1.3 %; Eosinophils # 0.7 K/mcL (0.0-0.6); Hemoglobin 12.3 g/dL (12.9-16.9); Immature Granulocytes % 0.2 % (0-4); Lymphocytes # 2.6 K/mcL (0.6-4.6); Lymphocytes % 29.4 %; Mean Corpuscular HGB Conc 32.4 g/dL (31.6-35.5); Mean Corpuscular Hemoglobin 28.4 pg (28.0-33.3); Mean Corpuscular Volume 87.8 fL (83.0-100.0); Mean Platelet Volume 9.8 fL (9.4-12.4); Monocytes # 0.9 K/mcL (0.0-1.3); Monocytes % 9.8 %; Neutrophils # 4.5 K/mcL (1.6-8.9); Platelet Count 271 K/mcL (140-400); Red Blood Count 4.33 M/mcL (4.19-5.50); Red Cell Distribution Width 17.1 % (11.5-14.5); Segmented Neutrophils % 51.3 %
[2018-01-28 07:20] LABS: BUN/Creatinine Ratio 18 (6-26); Blood Urea Nitrogen 20 mg/dL (8-23); Calcium 9.1 mg/dL (8.6-10.3); Carbon Dioxide 24 mEq/L (23-29); Chloride 106 mEq/L (98-107); Glucose 183 mg/dL (70-105); Osmolality,Calculated 293 (280-300); Potassium 3.5 mEq/L (3.5-5.1); Sodium 138 mEq/L (136-145); eGFR For Non-African Americans > 60 (> 60)
[2018-01-28 07:25] LABS: INR 1.8; Prothrombin Time 20.2 Seconds (9.4-12.1)
[2018-01-28] MEDS: Insulin LISPRO 300 UNITS/3 ML VIAL SQ SCH ×4 (10:02→21:45)
[2018-01-28] MEDS: Insulin DETEMIR 100 UNIT/ML X5UNITS SQ SCH ×2 (10:03→21:45)
[2018-01-28] MEDS: Aspirin Enteric Coated 81 MG Tablet PO SCH (10:03)
[2018-01-28] MEDS: Loratadine 10 MG TABLET PO SCH (10:03)
[2018-01-28] MEDS: PREDNISOLONE ACET 1% OP SCH ×4 (10:04→21:46)
[2018-01-28] MEDS: Metoprolol XL (24 HR) Succ 50 MG TAB.ER.24H PO SCH (10:04)
[2018-01-28] MEDS: Fenofibrate 54 MG TABLET PO SCH (10:04)
[2018-01-28] MEDS: OFLOXACIN OPTH OP SCH ×4 (10:04→21:46)
[2018-01-28] MEDS: Multivit/Ca/Min/Fe/FA 1 TAB TABLET PO SCH (10:04)
--- NOTE | 2018-01-28 12:51 | Internal Med Progress Note ---
Hospitalist Progress Note - Encounter Date of Encounter: 01/28/18 Time of Encounter: 12:47 - Subjective Interval History: Presented with dyspnea 1 week, imaging revealed mild congestive heart failure. Was treated with Lasix and is improving, continues to report pitting edema BLE - Exam Vitals: Temp Pulse Resp BP Pulse Ox 97.9 F 84 18 129/89 97 01/28/18 11:40 01/28/18 11:40 01/28/18 11:40 01/28/18 11:40 01/28/18 11:40 Exam: PHYSICAL EXAMINATION: GENERAL: The patient is an ill-appearing elderly male in no distress, he is alert and oriented 3 HEENT: Head is normocephalic and atraumatic. Extraocular muscles are intact. Pupils are equal, round, and reactive to light and accommodation. NECK: Supple. No carotid bruits. No lymphadenopathy or thyromegaly. LUNGS: Clear/diminished B/L throughout AP&L, HEART: Irregular rhythm, S1, S2 ABDOMEN: Soft, nontender, and nondistended. Positive bowel sounds. No hepatosplenomegaly was noted. EXTREMITIES: Without any cyanosis, clubbing, rash, lesions. 1-2+ pitting edema bilateral lower extremities, no change from yesterday NEUROLOGIC: Cranial nerves II through XII are grossly intact. SKIN: No ulceration or induration present. - Assessment and Plan (1) Congestive heart failure Current Visit: Yes Status: Acute Assessment and Plan: Patient presented with shortness of breath on exertion, B/L leg edema in the setting of Afib and congestive heart failure, recent aortic valve replacement BNP on admission 354 CXR with mild pulm edema continues have mild shortness of breath , continuing to require 2 L nasal cannula for respiratory support total fluid status nEt negative -990, has received 80 total IV Lasix in days prior. Did not receive any Lasix yesterday. We will give an additional 40 mg IV Lasix push today, continue to monitor renal function. Initial EKG with Afib with trigeminy Serial troponins negative 2 less than 0.03 Strict I/os Daily weight-stable Fluid restriction diet 1500cc dialy ECHO from 08/2017 with preserved EF and well placed bioprosthetic aortic valve, diastolic function was indeterminate. Will repeat limited ECHO to assess EF, aortic valve and wall motion-pending 01/28--from a respiratory perspective the patient is improving, he is no longer short of breath and is resting comfortably on 1 L and also tolerating. To repair. His lungs are clear/diminished throughout without rales which is improvement compared to yesterday. He was able to walk in the [place] without difficulty with only mild shortness of breath without oxygen support. Found to have worsening EF 30-35% per ECHO this admission. D/W. Dr. Corey Patel, Cardiology, who will see in consultation; thank you. Continue Troprol XL- and will continue with BID lasix to further diurese. Consider decreasing to 20mg BID IV lasix tomorrow. Continue to get up to chair and to ambulate in the [place] 3 times a day, continue with incentive spirometer. Respiratory support per NC PRN. Volume status net - 2180 LVEF 30-35%. Severe global left ventricular systolic dysfunction. Mild concentric left ventricular hypertrophy. Mildly dilated right ventricle. Moderate right ventricular hypokinesis. Mildly dilated left atrium and mildly dilated right atrium. RA pressure 15 mmHg (2) Atrial fibrillation Current Visit: Yes Status: Chronic Assessment and Plan: HR mostly controlled--12 hour review avg hr in the 80's hemodynamically stable INR is therapeutic Continue BB and Warfarin-pharmacy to dose (3) Coronary artery disease Current Visit: Yes Status: Chronic Assessment and Plan: per hx Continues to be chest pain free continue tele Continue home cardiac meds diminished EF per ECHO-cardio to see; thank you (4) S/P aortic valve replacement Current Visit: Yes Status: Chronic Assessment and Plan: LVEF 30-35%. Severe global left ventricular systolic dysfunction. Mild concentric left ventricular hypertrophy. Mildly dilated right ventricle. Moderate right ventricular hypokinesis. Mildly dilated left atrium and mildly dilated right atrium. RA pressure 15 mmHg as above (5) HTN (hypertension) Current Visit: Yes Status: Chronic Assessment and Plan: Chronic BP stable continue anti-htn meds (6) Tobacco abuse Current Visit: Yes Status: Chronic Assessment and Plan: discussed cessation (7) Hypothyroidism Current Visit: Yes Status: Chronic Assessment and Plan: asymptomatic, taking synthroid at home dose DVT Prophylaxis: warfarin, PT dosing, therapeutic - Time Spent with Patient Total time spent is greater than 50% in coordination of care (as documented) at patient's floor/unit and/or counseling patient: less than 15 minutes Plan of Care Discussed with: patient Internal Medicine: Result - Labs CBC & Chem 7: 09/09/18 05:32 01/28/18 05:32 Labs: Short CBC 01/28/18 Range/Units 05:32 WBC 8.7 (4.3-11.1) K/mcL Hgb 12.3 L (12.9-16.9) g/dL Hct 38.0 (37.5-50.1) % Plt Count 271 (140-400) K/mcL Neutrophils # 4.5 (1.6-8.9) K/mcL BMP 01/28/18 05:32 Sodium 138 Potassium 3.5 Chloride 106 Carbon Dioxide 24 BUN 20 Creatinine 1.09 Glucose 183 H Calcium 9.1 - ABG Interpretation ABG results: PT/INR, D-dimer PT 20.2 Seconds (9.4-12.1) H 01/28/18 05:32 Consult Discharge Plan - Plan Referrals: Murray Sarah DO [Primary Care Provider] - 02/06/18 10:10 am (1) Congestive heart failure Qualifiers: Heart failure type: unspecified Heart failure chronicity: acute on chronic Qualified Code(s): I50.9 - Heart failure, unspecified (2) Atrial fibrillation Qualifiers: Atrial fibrillation type: chronic Qualified Code(s): I48.2 - Chronic atrial fibrillation (3) Coronary artery disease Qualifiers: Coronary Disease-Associated Artery/Lesion type: [place] artery [place] vs. transplanted heart: [place] heart Associated angina: without angina Qualified Code(s): I25.10 - Atherosclerotic heart disease of [place] coronary artery without angina pectoris (5) HTN (hypertension) Qualifiers: Hypertension type: essential hypertension Qualified Code(s): I10 - Essential (primary) hypertension (7) Hypothyroidism Qualifiers: Hypothyroidism type: unspecified Qualified Code(s): E03.9 - Hypothyroidism, unspecified
[2018-01-28] MEDS: Furosemide 40 MG/4 ML VIAL IVP SCH ×2 (13:12→21:44)
[2018-01-28] MEDS ORDERED: *HR* Warfarin 4 MG TABLET PO ONE (18:00)
[2018-01-28] MEDS: Latanoprost 2.5 ML BOTTLE BOTH EYES SCH (21:46)
[2018-01-29] MEDS: Levothyroxine 25 MCG TABLET PO SCH (06:00)
[2018-01-29 06:40] LABS: Basophils # 0.1 K/mcL (0.0-0.2); Basophils % 1.1 %; Eosinophils # 0.8 K/mcL (0.0-0.6); Eosinophils % 8.3 %; Hemoglobin 13.3 g/dL (12.9-16.9); Immature Granulocytes % 0.2 % (0-4); Lymphocytes % 31.7 %; Mean Corpuscular HGB Conc 32.4 g/dL (31.6-35.5); Mean Corpuscular Hemoglobin 28.4 pg (28.0-33.3); Mean Corpuscular Volume 87.4 fL (83.0-100.0); Mean Platelet Volume 10.2 fL (9.4-12.4); Monocytes # 0.9 K/mcL (0.0-1.3); Monocytes % 9.1 %; Neutrophils # 4.6 K/mcL (1.6-8.9); Platelet Count 309 K/mcL (140-400); Red Blood Count 4.69 M/mcL (4.19-5.50); Red Cell Distribution Width 16.9 % (11.5-14.5); Segmented Neutrophils % 49.6 %
[2018-01-29 06:43] LABS: INR 1.7; Prothrombin Time 19.2 Seconds (9.4-12.1)
[2018-01-29 07:07] LABS: BUN/Creatinine Ratio 19 (6-26); Blood Urea Nitrogen 22 mg/dL (8-23); Calcium 9.4 mg/dL (8.6-10.3); Carbon Dioxide 26 mEq/L (23-29); Chloride 104 mEq/L (98-107); Glucose 172 mg/dL (70-105); Osmolality,Calculated 295 (280-300); Potassium 3.3 mEq/L (3.5-5.1); Sodium 139 mEq/L (136-145); eGFR For Non-African Americans > 60 (> 60)
--- NOTE | 2018-01-29 09:35 | Cardiology Consult Note ---
Date of Encounter: 01/29/18 Time of Encounter: 09:25 Assessment and Plan (1) Congestive heart failure Current Visit: Yes Status: Acute NYHA III, EF 30-35% from 55%, global. Etiology likley a combination of CAD, Afib , PVCs, valvular disease. fluid overload currently close to euvolemia P: switch lasix for iv to po 40 po qd, replace K. start lisinopril 2.5 qd, walk pt for dizziness, hypotension. C/w BB f/u cardiology clinic to repeat TTE for EF and bio-AVR Qualifiers: Heart failure type: systolic Heart failure chronicity: acute on chronic Qualified Code(s): I50.23 - Acute on chronic systolic (congestive) heart failure (2) Atrial fibrillation Current Visit: Yes Status: Chronic on A/C, rate ctr ok c/w home toprol 100. If recurrent CHF decompensation, rhythm ctr vs rate ctr Qualifiers: Atrial fibrillation type: chronic Qualified Code(s): I48.2 - Chronic atrial fibrillation (3) HTN (hypertension) Current Visit: Yes Status: Chronic Qualifiers: Hypertension type: essential hypertension Qualified Code(s): I10 - Essential (primary) hypertension (4) S/P aortic valve replacement Current Visit: Yes Status: Chronic valve seated well need full Echo as outpatient (5) PVC (premature ventricular contraction) Current Visit: Yes Status: Chronic f/u cardiology clinic. c/w torpol 100 Discussion w patient/family: The assessment and plan as outlined above was discussed with the patient and/or family members who expressed understanding and agreement. All questions were answered. Thank you for involving us in the care of your patient. Please call with any questions. History of Present Illness Consult date: 01/29/18 Requesting physician: Liu Guajardo Consult reason: CHF, drop EF Chief complaint: SOB History of present illness: Mr. Davis is a 72 year old male ho CAD s/p CABG, s/p Bio-AVR May 2017 EF 55 %, chronic a fib on A/C and rate ctr. Cataract surgery 01/24/18 P/w PEREIRA 1 wk at the background not well a couple of months. ET down to <1 flight of stairs, LE edema. ECG Afib, PVCs, trop negx2, BNP 354, TTE EF down to 30% from 55% INR is therapeutic baseline wt 92kg, admission Wt 96, now 92 kg on lasix 40 iv bid, Cr ok, low K On interview, feels better, no cp, dyspnea, palpitations. TTE Limited study LVEF 30-35%. Severe global left ventricular systolic dysfunction. Mild concentric left ventricular hypertrophy. Mildly dilated right ventricle. Moderate right ventricular hypokinesis. Mildly dilated left atrium and mildly dilated right atrium. RA pressure 15 mmHg Pt was being followed [facility] in [place] for his known . Had fall off ladder with possible LOC in Apr 2017. Questionable CVA- unclear. Had echocardiogram May 2017 which demonstrated critical . Subsequently had cardiac catheterization which demonstrated 100% occlusion of LAD- [employer]. Referred for AVR/ CABG x 1 as well as HENRY ligation on 05/24/17 in [place]. Holter 08/2017:Impression: 1. Baseline rhythm is atrial fibrillation throughout study. Average HR 63bpm. 2. Frequent PVCs. 3. Several episodes of idioventricular rhythm- longest 5 beats, rate 107bpm. 4. Multiple pauses- longest 2.2 seconds. 5. No diary returned by patient Echo 08/2017:Impressions: LVEF 55%. Not all LV segments were well visualized, but overall LVEF appears normal. Normal LV chamber size and function. Mild concentric left ventricular hypertrophy. Indeterminate diastolic function. Atypical septal motion consistent with bundle branch block. Right ventricular size not well visualized. Function appears mildly reduced. Bioprosthetic aortic vavle appears well seated. Leaflets not well visualized. Normal function noted. No evidence of pulmonary hypertension. Past Med Surg Social Fam HX - Past Medical History Medical history: arthritis, atrial fibrillation, cancer, coronary artery disease , CVA, diabetes, glaucoma, hyperlipidemia, hypertension, TIA Additional medical history: prostrate, fall possible stroke Psychiatric history: no psych history - Past Surgical History Additional surgical history: prostrate, finger, cabg - Social History Smoking Status: Current some day smoker Smokeless Tobacco Status: No Alcohol use: none Drug use: none - Family History Father Living Status: Cause of : [place] Hx Family Cardiac Disorders: Yes Medications and Allergies Aspirin Enteric Coated [Aspirin EC] 81 mg PO DAILY 01/25/18 [History] Cetirizine HCl [Zyrtec] 10 mg PO DAILY 01/25/18 [History] Donepezil [Aricept] 10 mg PO HS 01/25/18 [History] Fenofibrate 200 mg PO DAILY 01/25/18 [History] Insulin DETEMIR [Levemir] 20 unit SQ BID 01/25/18 [History] Levothyroxine Sodium [Levothyroxine Sodium] 25 mcg PO DAILY 01/25/18 [History] Metformin HCl [Glucophage] 1,000 mg PO QAM 01/25/18 [History] Multivitamin [One Daily Essential] 1 tab PO DAILY 01/25/18 [History] Simvastatin [Zocor] 40 mg PO HS 01/25/18 [History] Travoprost [Travatan Z] 1 drop BOTH EYES DAILY 01/25/18 [History] Warfarin [Coumadin] 2.5 mg PO TUTHSA 01/25/18 [History] Warfarin [Coumadin] 4 mg PO SUMOWEFR 01/25/18 [History] metFORMIN [Glucophage] 500 mg PO QPM 01/25/18 [History] Metoprolol Succinate [Metoprolol Succinate] 100 mg PO DAILY 01/26/18 [History] Ofloxacin OPTH Drops [Ocuflox] 5 ml OP QID 01/26/18 [History] Prednisolone Acetate/Pf [Prednisolone Acet 1% Eye Drop] 5 ml OP QID 01/26/18 [ History] 3 Allergy/AdvReac Type Severity Reaction Status Date / Time No Known Allergies Allergy Verified 10/01/17 08:46 ROS unobtainable: other All Systems Review: The remainder of the systems were reviewed and are negative - Cardiovascular Cardiovascular: as per HPI - Respiratory Respiratory: dyspnea - Hematological/Lymphatic Hematologic/Lymphatic: no easy bleeding Physical Examination Vital Signs, Last 4 Hours Temp Pulse Resp BP Pulse Ox 01/29/18 07:24 97.8 F 82 16 158/84 97 Other: General: NAD, AAO, cogent HEENT: anicteric Neck: no JVD Chest: CTA B/L, no W/R/C Heart: IR, S1/S2, no S3/S4, no M/G/R Abdominal: BS +, soft, ND, NT Peripheral Pulses: radial pulse 2+ B/L, DP 1+ B/L Skin/Extremities: no cyanosis, B/L 1+ LE edema, skin tenting Neurological: grossly non-focal. Results 01/29/18 05:14 01/29/18 05:14 Lab Results 01/29/18 01/29/18 01/29/18 05:14 05:14 05:14 WBC 9.4 Hgb 13.3 Hct 41.0 Plt Count 309 INR 1.7 Sodium 139 Potassium 3.3 L Chloride 104 Carbon Dioxide 26 BUN 22 Creatinine 1.14 Glucose 172 H Calcium 9.4 - Imaging and Cardiology Chest Xray: report reviewed Echo: image reviewed Holter: report reviewed, other (Tele reviewed, Afib PVCs) - EKG Interpretation EKG results cardiology: personally reviewed Consult Discharge Plan - Plan Referrals: Murray Sarah DO [Primary Care Provider] - 02/06/18 10:10 am
[2018-01-29] MEDS: Fenofibrate 54 MG TABLET PO SCH (09:46)
[2018-01-29] MEDS: Metoprolol XL (24 HR) Succ 50 MG TAB.ER.24H PO SCH (09:46)
[2018-01-29] MEDS: Furosemide 40 MG/4 ML VIAL IVP SCH (09:47)
[2018-01-29] MEDS: Loratadine 10 MG TABLET PO SCH (09:47)
[2018-01-29] MEDS: Insulin LISPRO 300 UNITS/3 ML VIAL SQ SCH ×3 (09:47→18:25)
[2018-01-29] MEDS: Multivit/Ca/Min/Fe/FA 1 TAB TABLET PO SCH (09:47)
[2018-01-29] MEDS: Aspirin Enteric Coated 81 MG Tablet PO SCH (09:47)
[2018-01-29] MEDS: Insulin DETEMIR 100 UNIT/ML X5UNITS SQ SCH (09:53)
[2018-01-29] MEDS: OFLOXACIN OPTH OP SCH ×3 (09:53→18:26)
[2018-01-29] MEDS: PREDNISOLONE ACET 1% OP SCH ×3 (10:25→18:26)
[2018-01-29 16:27] VITALS: BP 114/81
--- NOTE | 2018-01-29 17:40 | Discharge Summary ---
- NOTES TO OUTPATIENT PROVIDER Notes to Outpatient Provider: Admitted with CHF, reduced EF from 09/06 TTE, etiology multifactorial with a-fiv, CAD, valvular disease. Lisinopril added, 40mg PO daily lasix added. Please renal function in 1-week. Instructed to see PCP in 1-week of d/c. To have outpatient cardiology f/u and will need repeat TTE. Orders not resulted at time of discharge: Pending orders 01/30/18 04:00 Basic Metabolic Panel AM 040 CBC [Complete Blood Count] [HEME] AM 040 INR/PT [Prothrombin Time INR] [COAG] AM 04001/31/18 04:00 INR/PT [Prothrombin Time INR] [COAG] AM 04002/01/18 04:00 INR/PT [Prothrombin Time INR] [COAG] AM 040 Date of Encounter: 01/29/18 Time of Encounter: 17:38 - Discharge Diagnosis (1) Congestive heart failure Priority: Primary Status: Acute Assessment and Plan: Patient presented with shortness of breath on exertion, B/L leg edema in the setting of Afib and congestive heart failure, recent aortic valve replacement BNP on admission 354 CXR with mild pulm edema Initial EKG with Afib with trigeminy Serial troponins negative 2 less than 0.03 ECHO from 08/2017 with preserved EF and well placed bioprosthetic aortic valve, diastolic function was indeterminate. 01/29--from a respiratory perspective the patient is improving, he is no longer short of breath and is resting comfortably on RA. Lungs: clear without rales B/ L. He was able to walk in the [place] without O2 support, without difficulty or shortness of breath. Found to have worsening EF 30-35% per ECHO this admission.. Continue Troprol XL- add lisinopril 2.5 mg daily, D/c on lasix 40mg Daily. Will need repeat TTE and f/u with cardio. To f/u with PCP in 1- week of d/c. Discussed s/sx of CHF/fluid overload and discussed fluid retention and daily weights as well as fluid restriction. He verbalized understanding and denied any further question. He is instructed to return to the ED should he develop bilateral lower extremity edema, weight gain, shortness of breath or chest pain. LVEF 30-35%. Severe global left ventricular systolic dysfunction. Mild concentric left ventricular hypertrophy. Mildly dilated right ventricle. Moderate right ventricular hypokinesis. Mildly dilated left atrium and mildly dilated right atrium. RA pressure 15 mmHg Qualifiers: Heart failure type: systolic Heart failure chronicity: acute on chronic Qualified Code(s): I50.23 - Acute on chronic systolic (congestive) heart failure (2) Atrial fibrillation Priority: Secondary Status: Chronic Assessment and Plan: HR mostly controlled--12 hour review avg hr in the 80's hemodynamically stable INR is therapeutic Continue BB and Warfarin-pharmacy to dose Qualifiers: Atrial fibrillation type: chronic Qualified Code(s): I48.2 - Chronic atrial fibrillation (3) Coronary artery disease Priority: Secondary Status: Chronic Qualifiers: Coronary Disease-Associated Artery/Lesion type: [place] artery [place] vs. transplanted heart: [place] heart Associated angina: without angina Qualified Code(s): I25.10 - Atherosclerotic heart disease of [place] coronary artery without angina pectoris (4) S/P aortic valve replacement Priority: Secondary Status: Chronic (5) HTN (hypertension) Priority: Secondary Status: Chronic Qualifiers: Hypertension type: essential hypertension Qualified Code(s): I10 - Essential (primary) hypertension (6) Tobacco abuse Priority: Secondary Status: Chronic (7) Hypothyroidism Priority: Secondary Status: Chronic Qualifiers: Hypothyroidism type: unspecified Qualified Code(s): E03.9 - Hypothyroidism , unspecified Hospital course: Mr. Davis is a 72 year old male Admitted with CHF, reduced EF from 09/06 TTE; repeat TTE reveals EF of 30-35%, etiology of CHF likely multifactorial with a-fiv, CAD, valvular disease. Presented with rails and bilateral lower extremity pitting edema. Required IV Lasix throughout stay for diuresis. Required nasal cannula respiratory support. Patient now on room air, bilateral lower extremity edema has subsided. During the course of the stay he was started on to have milligrams of lisinopril daily and he will also be discharged on this medication. In addition to this the patient was given 40mg PO daily lasix and he will be discharged on this medication as well. Please renal function in 1-week. Instructed to see PCP in 1-week of d/c. To have outpatient cardiology f/u and will need repeat TTE. Discharge discussed with: patient, nurse - Time Spent with Patient Total time spent providing and/or coordinating discharge services: Less than 30 minutes - Discharge Medications Prescriptions: Furosemide [Lasix] 40 mg PO DAILY 30 Days #30 tablet Lisinopril [Zestril] 2.5 mg PO DAILY 30 Days #15 tablet Home Medications: Aspirin Enteric Coated [Aspirin EC] 81 mg PO DAILY 01/25/18 [History] Cetirizine HCl [Zyrtec] 10 mg PO DAILY 01/25/18 [History] Donepezil [Aricept] 10 mg PO HS 01/25/18 [History] Fenofibrate 200 mg PO DAILY 01/25/18 [History] Insulin DETEMIR [Levemir] 20 unit SQ BID 01/25/18 [History] Levothyroxine Sodium 25 mcg PO DAILY 01/25/18 [History] Metformin HCl [Glucophage] 1,000 mg PO QAM 01/25/18 [History] Multivitamin [One Daily Essential] 1 tab PO DAILY 01/25/18 [History] Simvastatin [Zocor] 40 mg PO HS 01/25/18 [History] Travoprost [Travatan Z] 1 drop BOTH EYES DAILY 01/25/18 [History] Warfarin [Coumadin] 2.5 mg PO TUTHSA 01/25/18 [History] Warfarin [Coumadin] 4 mg PO SUMOWEFR 01/25/18 [History] metFORMIN [Glucophage] 500 mg PO QPM 01/25/18 [History] Metoprolol Succinate 100 mg PO DAILY 01/26/18 [History] Ofloxacin OPTH Drops [Ocuflox] 5 ml OP QID 01/26/18 [History] Prednisolone Acetate/Pf [Prednisolone Acet 1% Eye Drop] 5 ml OP QID 01/26/18 [ History] Furosemide [Lasix] 40 mg PO DAILY 30 Days #30 tablet 01/29/18 [Rx] Lisinopril [Zestril] 2.5 mg PO DAILY 30 Days #15 tablet 01/29/18 [Rx] Allergies/Adverse Reactions: 3 Allergy/AdvReac Type Severity Reaction Status Date / Time No Known Allergies Allergy Verified 10/01/17 08:46 Date of admission: 01/25/18 16:32 Primary care physician: Murray Sarah Consults: 01/26/18 09:51 Consult to Nurse Navigator [CONS] Routine Comment: [facility] 01/28/18 12:52 Consult to Cardiology [CONS] Routine Comment: Consulting Provider: Cardiology Roberta Reason for Consult: diminished ejection fraction, in the setting of AE CHF Time Notified: 12:52 Call Completed: Yes Discharging clinician: Liu Guajardo Anticipated date of discharge: 01/29/18 - Constitutional Vitals: Temp Pulse Resp BP Pulse Ox 98.0 F 89 16 114/81 92 01/29/18 16:26 01/29/18 16:26 01/29/18 16:26 01/29/18 16:26 01/29/18 16:26 General appearance: Present: cooperative, A&O X 3, pleasant, severe distress ( severe resp distress, tachypneic) Exam: PHYSICAL EXAMINATION: GENERAL: The patient is an ill-appearing elderly male in no distress, he is alert and oriented 3 HEENT: Head is normocephalic and atraumatic. Extraocular muscles are intact. Pupils are equal, round, and reactive to light and accommodation. NECK: Supple. No carotid bruits. No lymphadenopathy or thyromegaly. LUNGS: Clear/diminished B/L throughout AP&L, HEART: Irregular rhythm, S1, S2 ABDOMEN: Soft, nontender, and nondistended. Positive bowel sounds. No hepatosplenomegaly was noted. EXTREMITIES: Without any cyanosis, clubbing, rash, lesions. Bilateral lower extremities without edema NEUROLOGIC: Cranial nerves II through XII are grossly intact. SKIN: No ulceration or induration present. - Patient Status Disposition: Home, Self-Care Condition: Good Functional capacity at discharge: independent ambulation Overall status at discharge: patient is progressing back to baseline - Discharge Instructions Instructions: Heart Failure (DC), Atrial Fibrillation (DC) Follow Up With: Murray Sarah DO [Primary Care Provider] - 02/06/18 10:10 am - Diet and Activity Activity: increase activity as tolerated, resume usual activities as tolerated Diet: diabetic diet, low fat, low cholesterol, low salt diet, other (Fluid restricted diet at 1/2-2 L daily)
[2018-01-29] MEDS ORDERED: *HR* Warfarin 4 MG TABLET PO ONE (18:00)
[2018-01-30] MEDS ORDERED: Furosemide 40 MG TABLET PO SCH (09:00)
== END 2018-01-29 18:57 | disposition home or self-care (01) | DRG 293 ==
LOC: EMEROOARM 13:07 → 3BNU 13:07
PROVIDERS: ADMIT Internal Medicine; ATTEND Internal Medicine

== ENCOUNTER 2020-04-22 17:52 | Observation (INO) ==
[2020-04-22 19:20] LABS: Basophils # 0.1 K/mcL (0.0-0.2); Basophils % 0.6 %; Eosinophils # 0.6 K/mcL (0.0-0.6); Eosinophils % 4.8 %; Hematocrit 32.8 % (37.5-50.1); Hemoglobin 10.6 g/dL (12.9-16.9); Immature Granulocytes % 0.7 % (0-4); Lymphocytes # 2.8 K/mcL (0.6-4.6); Lymphocytes % 22.4 %; Mean Corpuscular HGB Conc 32.3 g/dL (31.6-35.5); Mean Corpuscular Hemoglobin 30.1 pg (28.0-33.3); Mean Corpuscular Volume 93.2 fL (83.0-100.0); Mean Platelet Volume 9.5 fL (9.4-12.4); Monocytes % 7.9 %; Neutrophils # 7.9 K/mcL (1.6-8.9); Platelet Count 490 K/mcL (140-400); Red Blood Count 3.52 M/mcL (4.19-5.50); Red Cell Distribution Width 14.6 % (11.5-14.5); Segmented Neutrophils % 63.6 %; White Blood Count 12.4 K/mcL (4.3-11.1)
[2020-04-22 19:29] LABS: Troponin I < 0.03 ng/mL (< 0.04)
[2020-04-22 20:19] LABS: BUN/Creatinine Ratio 15 (6-26); Blood Urea Nitrogen 18 mg/dL (8-23); Calcium 9.4 mg/dL (8.6-10.3); Carbon Dioxide 23 mEq/L (23-29); Chloride 104 mEq/L (98-107); Glucose 130 mg/dL (70-105); Osmolality,Calculated 288 (280-300); Potassium 3.9 mEq/L (3.5-5.1); Sodium 137 mEq/L (136-145); eGFR For African Americans > 60 (> 60); eGFR For Non-African Americans > 60 (> 60)
[2020-04-22] MEDS ORDERED: Isovue-370 500 ML BOTTLE IVP ONE (20:49)
[2020-04-22] MEDS ORDERED: *HR* Heparin 5,000 UNIT/ML VIAL IVP PRN ×2 (22:54)
[2020-04-22] MEDS ORDERED: *HR* Heparin 5,000 UNIT/ML VIAL IVP ONE (22:54)
[2020-04-23] MEDS ORDERED: Ondansetron ODT 4 MG TAB.RAPDIS SL PRN (00:07)
[2020-04-23] MEDS ORDERED: Naloxone 0.4 MG/ML INJ IVP PRN (00:07)
[2020-04-23] MEDS: Heparin 25,000UNIT/250ML 1/2NS 25,000 UNIT/250 ML IV.SOLN IVC SCH (00:07)
[2020-04-23 00:43] LABS: Hematocrit 33.3 % (37.5-50.1); Hemoglobin 10.7 g/dL (12.9-16.9); Mean Corpuscular HGB Conc 32.1 g/dL (31.6-35.5); Mean Corpuscular Hemoglobin 30.3 pg (28.0-33.3); Mean Corpuscular Volume 94.3 fL (83.0-100.0); Mean Platelet Volume 9.2 fL (9.4-12.4); Platelet Count 557 K/mcL (140-400); Red Blood Count 3.53 M/mcL (4.19-5.50); Red Cell Distribution Width 14.6 % (11.5-14.5); White Blood Count 15.6 K/mcL (4.3-11.1)
[2020-04-23 00:48] LABS: INR 1.7; Prothrombin Time 19.7 Seconds (9.4-12.1)
[2020-04-23 00:50] LABS: Heparin anti-factor XA UFH < 0.04 IU/mL (0.30-0.70)
[2020-04-23 00:53] LABS: Adenovirus Not Detected (Not Detect); Bordetella Pertussis Not Detected (Not Detect); Chlamydophila pneumoniae Not Detected (Not Detect); Coronavirus 229E Not Detected (Not Detect); Coronavirus HKU1 Not Detected (Not Detect); Coronavirus NL63 Not Detected (Not Detect); Coronavirus OC43 Not Detected (Not Detect); Human Metapneumovirus Not Detected (Not Detect); Human Rhinovirus/Enterovirus Not Detected (Not Detect); Influenza A Subtype 2009 H1 Not Detected (Not Detect); Influenza B Not Detected (Not Detect); Mycoplasma pneumoniae Not Detected (Not Detect); Parainfluenza Virus 1 Not Detected (Not Detect); Parainfluenza Virus 2 Not Detected (Not Detect); Parainfluenza Virus 3 Not Detected (Not Detect); Parainfluenza Virus 4 Not Detected (Not Detect); Respiratory Syncytial Virus Not Detected (Not Detect); SARS-CoV-2 Not Detected (Not Detect)
[2020-04-23] MEDS ORDERED: Perflutren Lipid Microsphere 1.3 ML in 0.9 % Sodium Chloride 8.7 ML IVP PRN (01:29)
[2020-04-23] MEDS ORDERED: D5% in Water 1,000 ML IVC PRN (02:17)
[2020-04-23] MEDS ORDERED: Dextrose Gel 15 GM/37.5 ML TUBE PO PRN ×2 (02:17)
[2020-04-23] MEDS ORDERED: *HR* Dextrose 50 % in Water (Vial) 50 ML VIAL IVP PRN (02:17)
[2020-04-23] MEDS ORDERED: Insulin LISPRO 300 UNITS/3 ML VIAL SQ SCH (02:30)
[2020-04-23 02:47] LABS: Basophils # 0.1 K/mcL (0.0-0.2); Basophils % 0.6 %; Eosinophils # 0.6 K/mcL (0.0-0.6); Eosinophils % 4.8 %; Hematocrit 30.3 % (37.5-50.1); Hemoglobin 9.9 g/dL (12.9-16.9); INR 2.1; Immature Granulocytes % 0.9 % (0-4); Lymphocytes # 2.6 K/mcL (0.6-4.6); Mean Corpuscular HGB Conc 32.7 g/dL (31.6-35.5); Mean Corpuscular Hemoglobin 30.6 pg (28.0-33.3); Mean Corpuscular Volume 93.5 fL (83.0-100.0); Mean Platelet Volume 9.4 fL (9.4-12.4); Monocytes % 7.8 %; Neutrophils # 7.9 K/mcL (1.6-8.9); Platelet Count 465 K/mcL (140-400); Prothrombin Time 23.7 Seconds (9.4-12.1); Red Blood Count 3.24 M/mcL (4.19-5.50); Red Cell Distribution Width 14.6 % (11.5-14.5); Segmented Neutrophils % 64.9 %; White Blood Count 12.2 K/mcL (4.3-11.1)
[2020-04-23 03:01] LABS: Alanine Aminotransferase 19 Units/L (7-52); Albumin 3.7 g/dL (3.5-5.7); Albumin/Globulin Ratio 1.3 (1.1-2.2); Alkaline Phosphatase 55 Units/L (34-104); Aspartate Amino Transferase 23 Units/L (13-39); BUN/Creatinine Ratio 16 (6-26); Bilirubin,Total 0.8 mg/dL (0.3-1.0); Blood Urea Nitrogen 17 mg/dL (8-23); Calcium 9.1 mg/dL (8.6-10.3); Carbon Dioxide 23 mEq/L (23-29); Chloride 103 mEq/L (98-107); Globulin 2.9 g/dL (2.4-3.5); Glucose 181 mg/dL (70-105); Magnesium 1.7 mg/dL (1.6-2.6); Osmolality,Calculated 286 (280-300); Phosphorous 2.7 mg/dL (2.7-4.5); Potassium 3.8 mEq/L (3.5-5.1); Sodium 135 mEq/L (136-145); Total Protein 6.6 g/dL (6.4-8.9); eGFR For African Americans > 60 (> 60); eGFR For Non-African Americans > 60 (> 60)
[2020-04-23] MEDS: Acetaminophen 325 MG TABLET PO PRN (03:38)
[2020-04-23] MEDS: Insulin LISPRO 300 UNITS/3 ML VIAL SQ SCH ×5 (03:39→23:30)
[2020-04-23] MEDS ORDERED: Melatonin 3 MG TABLET PO ONE (04:00)
[2020-04-23 05:27] LABS: Estimated Average Glucose 160 mg/dl
[2020-04-23] MEDS: Levothyroxine 25 MCG TABLET PO SCH (05:53)
[2020-04-23 07:22] LABS: Bilirubin,Urine Negative (Negative); Blood,Urine Negative (Negative); Clarity,Urine Clear (Clear); Color,Urine Light-Yellow (Yellow); Glucose,Urine (UA) Normal (Normal); Ketones,Urine Negative (Negative); Leukocyte Esterase,Urine Negative (Negative); Nitrite,Urine Negative (Negative); Protein,Urine Trace mg/dL (Neg-Trace); Specific Gravity,Urine 1.027 (1.010-1.025); Urobilinogen,Urine Normal (Normal)
[2020-04-23] MEDS: Metoprolol XL (24 HR) Succ 50 MG TAB.ER.24H PO SCH (08:17)
[2020-04-23] MEDS ORDERED: Furosemide 40 MG TABLET PO SCH (10:30)
[2020-04-23] MEDS ORDERED: Metoprolol XL (24 HR) Succ 50 MG TAB.ER.24H PO SCH (18:00)
[2020-04-23] MEDS ORDERED: *HR* Warfarin 4 MG TABLET PO ONE (18:00)
[2020-04-23] MEDS ORDERED: Warfarin perPT PO PRN (18:00)
[2020-04-24 05:37] LABS: Basophils # 0.1 K/mcL (0.0-0.2); Basophils % 0.7 %; Eosinophils # 0.7 K/mcL (0.0-0.6); Eosinophils % 6.3 %; Hematocrit 30.8 % (37.5-50.1); Hemoglobin 10.3 g/dL (12.9-16.9); Immature Granulocytes % 0.8 % (0-4); Lymphocytes # 2.6 K/mcL (0.6-4.6); Lymphocytes % 24.6 %; Mean Corpuscular HGB Conc 33.4 g/dL (31.6-35.5); Mean Corpuscular Hemoglobin 30.7 pg (28.0-33.3); Mean Corpuscular Volume 91.7 fL (83.0-100.0); Mean Platelet Volume 9.2 fL (9.4-12.4); Monocytes % 9.5 %; Neutrophils # 6.2 K/mcL (1.6-8.9); Platelet Count 502 K/mcL (140-400); Red Blood Count 3.36 M/mcL (4.19-5.50); Red Cell Distribution Width 14.6 % (11.5-14.5); Segmented Neutrophils % 58.1 %; White Blood Count 10.7 K/mcL (4.3-11.1)
[2020-04-24 05:45] LABS: INR 2.3
[2020-04-24 06:06] LABS: BUN/Creatinine Ratio 14 (6-26); Blood Urea Nitrogen 16 mg/dL (8-23); Calcium 9.2 mg/dL (8.6-10.3); Carbon Dioxide 25 mEq/L (23-29); Chloride 105 mEq/L (98-107); Glucose 119 mg/dL (70-105); Osmolality,Calculated 288 (280-300); Potassium 3.7 mEq/L (3.5-5.1); Sodium 138 mEq/L (136-145); eGFR For African Americans > 60 (> 60); eGFR For Non-African Americans > 60 (> 60)
[2020-04-24] MEDS: Levothyroxine 25 MCG TABLET PO SCH (06:35)
[2020-04-24] MEDS: Insulin LISPRO 300 UNITS/3 ML VIAL SQ SCH ×2 (08:23→11:41)
[2020-04-24] MEDS: Metoprolol XL (24 HR) Succ 50 MG TAB.ER.24H PO SCH (08:42)
[2020-04-24] MEDS: Acetaminophen 325 MG TABLET PO PRN (08:47)
[2020-04-24] MEDS ORDERED: Furosemide 40 MG TABLET PO SCH (09:00)
[2020-04-24] MEDS ORDERED: lisinopriL 10 MG TABLET PO SCH (09:00)
[2020-04-24] MEDS ORDERED: Fenofibrate 54 MG TABLET PO SCH (09:00)
[2020-04-24] MEDS: Heparin 25,000UNIT/250ML 1/2NS 25,000 UNIT/250 ML IV.SOLN IVC SCH (10:48)
[2020-04-24 10:56] VITALS: BP 141/93
[2020-04-24] MEDS ORDERED: *HR* Warfarin 4 MG TABLET PO ONE (18:00)
== END 2020-04-24 17:58 | disposition home or self-care (01) ==
LOC: EMEROOARM 17:52 → 3BNU 17:52
PROVIDERS: ADMIT Internal Medicine; ATTEND Internal Medicine

== ENCOUNTER 2021-10-05 16:04 | Observation (INO) ==
[2021-10-05] MEDS ORDERED: Ipratropium/Albuterol Neb 3 ML IH ONE (16:39)
[2021-10-05] MEDS ORDERED: 0.9 % Sodium Chloride 1,000 ML IVC ONE (16:39)
[2021-10-05] MEDS ORDERED: predniSONE 20 MG TABLET PO ONE (16:40)
[2021-10-05 17:10] LABS: Basophils # 0.1 K/mcL (0.0-0.2); Basophils % 0.6 %; Eosinophils # 0.1 K/mcL (0.0-0.6); Eosinophils % 1.1 %; Hematocrit 34.7 % (37.5-50.1); Hemoglobin 11.7 g/dL (12.9-16.9); Immature Granulocytes % 0.4 % (0-4); Lymphocytes # 2.3 K/mcL (0.6-4.6); Lymphocytes % 23.2 %; Mean Corpuscular HGB Conc 33.7 g/dL (31.6-35.5); Mean Corpuscular Hemoglobin 29.8 pg (28.0-33.3); Mean Corpuscular Volume 88.5 fL (83.0-100.0); Mean Platelet Volume 9.5 fL (9.4-12.4); Monocytes % 10.4 %; Neutrophils # 6.3 K/mcL (1.6-8.9); Platelet Count 250 K/mcL (140-400); Red Blood Count 3.92 M/mcL (4.19-5.50); Red Cell Distribution Width 14.6 % (11.5-14.5); Segmented Neutrophils % 64.3 %; White Blood Count 9.8 K/mcL (4.3-11.1)
[2021-10-05] MEDS ORDERED: Albuterol 2.5 MG/3 ML NEBULIZER ONE (17:16)
[2021-10-05 17:18] LABS: INR 1.9; Prothrombin Time 20.7 Seconds (9.4-12.1)
[2021-10-05 17:21] LABS: Activated Partial Thrombo Time 33.2 Seconds (26.0-36.0)
[2021-10-05] MEDS: Albuterol 2.5 MG/3 ML NEBULIZER IH ONE ×2 (17:25→18:39)
[2021-10-05 17:29] LABS: Alanine Aminotransferase 15 Units/L (7-52); Albumin/Globulin Ratio 1.4 (1.1-2.2); Alkaline Phosphatase 60 Units/L (34-104); Aspartate Amino Transferase 24 Units/L (13-39); BUN/Creatinine Ratio 17 (6-26); Bilirubin,Total 0.7 mg/dL (0.3-1.0); Blood Urea Nitrogen 16 mg/dL (8-23); Calcium 9.1 mg/dL (8.6-10.3); Carbon Dioxide 23 mEq/L (23-29); Chloride 103 mEq/L (98-107); Creatine Kinase 316 Units/L (30-223); Globulin 2.9 g/dL (2.4-3.5); Glucose 146 mg/dL (70-105); Magnesium 1.6 mg/dL (1.6-2.6); Osmolality,Calculated 284 (280-300); Potassium 4.5 mEq/L (3.5-5.1); Sodium 135 mEq/L (136-145); Total Protein 6.9 g/dL (6.4-8.9); Troponin I < 0.03 ng/mL (< 0.04); eGFR For African Americans > 60 (> 60); eGFR For Non-African Americans > 60 (> 60)
[2021-10-05 18:24] LABS: Bilirubin,Urine Negative (Negative); Blood,Urine Negative (Negative); Clarity,Urine Clear (Clear); Color,Urine Light-Yellow (Yellow); Glucose,Urine (UA) Normal (Normal); Hyaline Casts,Urine Few per lpf (None Seen); Ketones,Urine Negative (Negative); Leukocyte Esterase,Urine Trace (Negative); Nitrite,Urine Negative (Negative); Protein,Urine 50 mg/dL (Neg-Trace); RBC,Urine 0-3 per hpf (0-3); Squamous Epithelial Cell,Urine Few per hpf (None-Few); Urobilinogen,Urine Normal (Normal)
[2021-10-05 18:27] LABS: Influenza A PCR Negative (Negative); Influenza B PCR Negative (Negative); Resp. Syncytial Virus PCR Negative (Negative)
[2021-10-05 18:28] LABS: SARS-CoV-2 by PCR (In House) Negative (Negative)
[2021-10-05] MEDS ORDERED: cefTRIAXone 1,000 MG in 0.9 % Sodium Chloride Mini Bag 100 ML IVPB ONE (19:23)
[2021-10-05] MEDS ORDERED: cefTRIAXone 1,000 MG in Water for inj. (sterile) 10 ML IVP ONE (19:37)
[2021-10-05] MEDS ORDERED: Ondansetron 4 MG/2 ML VIAL IVP PRN (21:21)
[2021-10-05] MEDS ORDERED: Acetaminophen 325 MG TABLET PO PRN (21:21)
[2021-10-05] MEDS ORDERED: Naloxone 0.4 MG/ML INJ IVP PRN (21:21)
[2021-10-05] MEDS ORDERED: Ipratropium/Albuterol Neb 3 ML IH PRN (23:05)
[2021-10-05] MEDS ORDERED: *HR* Dextrose 50 % in Water (Syg) 50 ML SYRINGE IVP PRN (23:09)
[2021-10-05] MEDS ORDERED: D5% in Water 1,000 ML IVC PRN (23:09)
[2021-10-05] MEDS ORDERED: Dextrose 4 GM Chewable Tablets PO PRN ×2 (23:09)
[2021-10-06 01:12] LABS: Basophils % 0.2 %; Hematocrit 35.4 % (37.5-50.1); Hemoglobin 11.6 g/dL (12.9-16.9); Immature Granulocytes % 0.4 % (0-4); Lymphocytes # 0.7 K/mcL (0.6-4.6); Lymphocytes % 7.3 %; Mean Corpuscular HGB Conc 32.8 g/dL (31.6-35.5); Mean Corpuscular Hemoglobin 29.1 pg (28.0-33.3); Mean Corpuscular Volume 88.9 fL (83.0-100.0); Mean Platelet Volume 10.1 fL (9.4-12.4); Monocytes # 0.1 K/mcL (0.0-1.3); Monocytes % 1.2 %; Neutrophils # 8.8 K/mcL (1.6-8.9); Platelet Count 256 K/mcL (140-400); Red Blood Count 3.98 M/mcL (4.19-5.50); Red Cell Distribution Width 14.5 % (11.5-14.5); Segmented Neutrophils % 90.9 %; White Blood Count 9.6 K/mcL (4.3-11.1)
[2021-10-06 01:27] LABS: BUN/Creatinine Ratio 16 (6-26); Blood Urea Nitrogen 17 mg/dL (8-23); Calcium 8.8 mg/dL (8.6-10.3); Carbon Dioxide 17 mEq/L (23-29); Chloride 102 mEq/L (98-107); Glucose 376 mg/dL (70-105); Magnesium 1.5 mg/dL (1.6-2.6); Osmolality,Calculated 293 (280-300); Potassium 4.7 mEq/L (3.5-5.1); Sodium 133 mEq/L (136-145); eGFR For African Americans > 60 (> 60); eGFR For Non-African Americans > 60 (> 60)
[2021-10-06] MEDS ORDERED: Magnesium Sulfate 1 GM/102 ML PIGGYBACK IVPB ONE (03:41)
[2021-10-06 04:10] LABS: Folate > 22.3 ng/mL (3.0-16.0); Vitamin B12 157 pg/mL (250-1100)
[2021-10-06 04:45] LABS: Vitamin D 25 Hydroxy 32 ng/mL (30-80)
[2021-10-06] MEDS: Levothyroxine 25 MCG TABLET PO SCH (06:02)
[2021-10-06] MEDS: *HR* Metformin 500 MG TABLET PO SCH ×2 (08:52→17:29)
[2021-10-06] MEDS: lisinopriL 10 MG TABLET PO SCH (08:52)
[2021-10-06] MEDS: Metoprolol XL (24 HR) Succ 50 MG TAB.ER.24H PO SCH (08:53)
[2021-10-06] MEDS: Multivit/Ca/Min/Fe/FA 1 TAB TABLET PO SCH (08:53)
[2021-10-06] MEDS: Furosemide 40 MG/4 ML VIAL IVP SCH (08:53)
[2021-10-06] MEDS: Aspirin Enteric Coated 81 MG Tablet PO SCH (08:53)
[2021-10-06] MEDS: Cholecalciferol (D-3) 1,000 UNIT (25MCG) TABLET PO SCH ×2 (08:53→20:45)
[2021-10-06] MEDS: Insulin LISPRO 300 UNITS/3 ML VIAL SUBQ SCH ×3 (08:54→17:21)
[2021-10-06] MEDS: cefTRIAXone 1,000 MG in 0.9 % Sodium Chloride Mini Bag 100 ML IVPB SCH (08:55)
[2021-10-06] MEDS ORDERED: NON-FORMULARY MEDICATION 1 EACH EACH (Glucosamn/Condroitn/C/Mn/Boron [Cvs Glucosamine Chon PO SCH (09:00)
[2021-10-06] MEDS ORDERED: Warfarin perPT PO PRN (18:00)
[2021-10-06] MEDS ORDERED: Metoprolol XL (24 HR) Succ 50 MG TAB.ER.24H PO SCH (18:00)
[2021-10-06] MEDS ORDERED: *HR* Warfarin 2 MG TABLET PO SCH (18:00)
[2021-10-06 18:10] LABS: INR 1.7; Prothrombin Time 18.6 Seconds (9.4-12.1)
[2021-10-06] MEDS ORDERED: Furosemide 40 MG/4 ML VIAL IVP ONE (21:00)
[2021-10-06] MEDS ORDERED: Insulin DETEMIR 100 UNIT/ML X5UNITS SUBQ SCH (21:00)
[2021-10-07 01:37] LABS: Basophils % 0.2 %; Eosinophils # 0.2 K/mcL (0.0-0.6); Eosinophils % 1.6 %; Hematocrit 34.7 % (37.5-50.1); Hemoglobin 11.1 g/dL (12.9-16.9); Immature Granulocytes % 0.3 % (0-4); Lymphocytes # 3.2 K/mcL (0.6-4.6); Mean Corpuscular Hemoglobin 28.7 pg (28.0-33.3); Mean Corpuscular Volume 89.7 fL (83.0-100.0); Mean Platelet Volume 9.8 fL (9.4-12.4); Monocytes # 0.8 K/mcL (0.0-1.3); Monocytes % 7.7 %; Neutrophils # 6.4 K/mcL (1.6-8.9); Platelet Count 279 K/mcL (140-400); Red Blood Count 3.87 M/mcL (4.19-5.50); Red Cell Distribution Width 14.5 % (11.5-14.5); Segmented Neutrophils % 60.2 %; White Blood Count 10.6 K/mcL (4.3-11.1)
[2021-10-07 01:52] LABS: INR 1.6; Prothrombin Time 17.4 Seconds (9.4-12.1)
[2021-10-07 01:55] LABS: Alanine Aminotransferase 18 Units/L (7-52); Albumin 3.7 g/dL (3.5-5.7); Albumin/Globulin Ratio 1.3 (1.1-2.2); Alkaline Phosphatase 53 Units/L (34-104); Aspartate Amino Transferase 37 Units/L (13-39); BUN/Creatinine Ratio 26 (6-26); Bilirubin,Total 0.5 mg/dL (0.3-1.0); Blood Urea Nitrogen 25 mg/dL (8-23); Carbon Dioxide 24 mEq/L (23-29); Chloride 103 mEq/L (98-107); Globulin 2.9 g/dL (2.4-3.5); Glucose 115 mg/dL (70-105); Osmolality,Calculated 289 (280-300); Potassium 3.7 mEq/L (3.5-5.1); Sodium 137 mEq/L (136-145); Total Protein 6.6 g/dL (6.4-8.9); eGFR For African Americans > 60 (> 60); eGFR For Non-African Americans > 60 (> 60)
[2021-10-07] MEDS: Levothyroxine 25 MCG TABLET PO SCH (05:05)
[2021-10-07] MEDS: Insulin LISPRO 300 UNITS/3 ML VIAL SUBQ SCH ×2 (07:30→11:47)
[2021-10-07] MEDS: *HR* Metformin 500 MG TABLET PO SCH (09:24)
[2021-10-07] MEDS: Multivit/Ca/Min/Fe/FA 1 TAB TABLET PO SCH (09:24)
[2021-10-07] MEDS: Aspirin Enteric Coated 81 MG Tablet PO SCH (09:25)
[2021-10-07] MEDS: Metoprolol XL (24 HR) Succ 50 MG TAB.ER.24H PO SCH (09:25)
[2021-10-07] MEDS: lisinopriL 10 MG TABLET PO SCH (09:25)
[2021-10-07] MEDS: Cholecalciferol (D-3) 1,000 UNIT (25MCG) TABLET PO SCH (09:25)
[2021-10-07] MEDS: cefTRIAXone 1,000 MG in 0.9 % Sodium Chloride Mini Bag 100 ML IVPB SCH (09:27)
[2021-10-07] MEDS: Furosemide 40 MG/4 ML VIAL IVP SCH (09:29)
[2021-10-07 11:07] VITALS: BP 134/81; PULSE 80; TEMP 97.7; O2SAT 96
[2021-10-07] MEDS ORDERED: *HR* Warfarin 4 MG TABLET PO ONE (18:00)
[2021-10-07] MEDS ORDERED: Warfarin perPT PO PRN (18:00)
[2021-10-07] MEDS ORDERED: *HR* Warfarin 4 MG TABLET PO SCH (18:00)
[2021-10-11] MEDS ORDERED: Dulaglutide [Trulicity] 0.75 MG/0.5 ML SUBQ SCH (09:00)
== END 2021-10-07 15:04 | disposition home health service (06) ==
LOC: 3BNU 16:04 → EMEROOARM 16:04 → SUATTDRO 20:20 → 3BNU 20:49
PROVIDERS: ADMIT Student in an Organized Health Care Education/Training Program; ATTEND Nurse Practitioner